=== PATIENT | male | born 1965 | race Caucasian/White ===

== ENCOUNTER 2016-10-16 11:37 | Emergency (ER) | payer OTHER ==
[~2016-10-16] VITALS: Ht 195.6 cm; Wt 74.8 kg
[~2016-10-16 11:37] MED LIST: NOHOMEMEDICATIONS
[2016-10-16 13:39] VITALS: BP 122/80
== END 2016-10-16 13:40 | disposition home or self-care (01) ==
LOC: ER 11:37
DX: I83.92 Asymptomatic varicose veins of left lower extremity (principal); F10.99 Alcohol use, unspecified with unspecified alcohol-induced disorder; S91.311A Laceration without foreign body, right foot, initial encounter; X58.XXXA Exposure to other specified factors, initial encounter; Y93.89 Activity, other specified; Y92.89 Other specified places as the place of occurrence of the external cause; Y99.8 Other external cause status

== ENCOUNTER → 2019-03-01 | Outpatient (CLI) | payer OTHER | LOC: HYPER 08:42 | DX: I87.323 Chronic venous hypertension (idiopathic) with inflammation of bilateral lower extremity (principal); L97.822 Non-pressure chronic ulcer of other part of left lower leg with fat layer exposed; L97.812 Non-pressure chronic ulcer of other part of right lower leg with fat layer exposed; I70.249 Atherosclerosis of native arteries of left leg with ulceration of unspecified site; K21.9 Gastro-esophageal reflux disease without esophagitis; R51 Headache; R60.0 Localized edema ==

== ENCOUNTER → 2019-03-08 | Outpatient (CLI) | payer OTHER | LOC: HYPER 07:09 | DX: E11.622 Type 2 diabetes mellitus with other skin ulcer (principal); I87.323 Chronic venous hypertension (idiopathic) with inflammation of bilateral lower extremity; L97.312 Non-pressure chronic ulcer of right ankle with fat layer exposed; L97.322 Non-pressure chronic ulcer of left ankle with fat layer exposed; L03.116 Cellulitis of left lower limb; K21.9 Gastro-esophageal reflux disease without esophagitis; M54.5 Low back pain; R51 Headache; R60.0 Localized edema; Z90.49 Acquired absence of other specified parts of digestive tract ==